=== PATIENT | male | born 1960 | race African-American/Black ===

== ENCOUNTER 2016-09-13 13:28 | Emergency (ER) | payer MEDICAID, OTHER ==
[~2016-09-13] VITALS: Ht 175.3 cm; Wt 95.0 kg
[2016-09-13 14:00] VITALS: BP 139/98
== END 2016-09-13 17:02 | disposition left against medical advice (07) ==
LOC: ER 16:51
DX: H92.02 Otalgia, left ear (principal); Z53.21 Procedure and treatment not carried out due to patient leaving prior to being seen by health care provider

== ENCOUNTER 2021-07-11 10:07 | Emergency (ER) | payer SELFPAY ==
[~2021-07-11] VITALS: Ht 177.8 cm; Wt 91.0 kg
[2021-07-11 12:30] VITALS: BP 127/82
== END 2021-07-11 12:49 | disposition home or self-care (01) ==
LOC: ER 10:47
DX: F19.10 Other psychoactive substance abuse, uncomplicated (principal); Z88.6 Allergy status to analgesic agent
CPT/HCPCS: 71045; 93005; 99283